=== PATIENT | male | born 1990 ===

== ENCOUNTER 2024-06-15 14:30 | Emergency (ER) | payer BC ==
[2024-06-15 16:05] LABS: CORONAVIRUS COVID-19 NAA NEGATIVE (NEGATIVE); INFLUENZA A NAA NEGATIVE (NEGATIVE); INFLUENZA B NAA NEGATIVE (NEGATIVE); RESPIRATORY SYNCYTIAL VIR NAA NEGATIVE (NEGATIVE)
== END 2024-06-15 16:30 | disposition home or self-care (01) ==
LOC: LL.ED 14:30
DX: J06.9 Acute upper respiratory infection, unspecified (principal); B97.89 Other viral agents as the cause of diseases classified elsewhere; T78.40XA Allergy, unspecified, initial encounter
CPT/HCPCS: 0241U; 99283